=== PATIENT | female | born 1930 | race American Indian/Alaskan Native ===

== ENCOUNTER 2017-05-07 10:57 | Outpatient (CLI) | payer MEDICARE ==
--- NOTE | 2017-05-07 11:56 | Mammography Report ---
Right mammogram: Compared to 04/13/16. CAD study utilized. Findings: Predominance of adipose tissue right breast. Calcifications right breast without interval change. No mass. Normal axilla. Focal new dense asymmetry measuring 3 mm in diameter noted at the lower right axilla. Impression: Focal new density right lower axilla. Recommend spot mag and if necessary sonographic examination. BI-RADS CATEGORY: 0 = Needs additional imaging evaluation ACR BI-RADS MAMMOGRAPHIC CODES: 0 = Needs additional imaging evaluation; 1 = Negative; 2 = Benign; 3 = Probably benign; 4 = Suspicious; 5 = Malignant; 6 = Known biopsy-proven malignancy COMMENT: 1. Dense breast tissue, i.e., adenosis, fibrocystic changes, etc., may obscure an underlying neoplasm. 2. Approximately 10% of cancers are not detected with mammography. 3. A negative mammography report should not delay biopsy if a clinically suspicious mass is present.
== END 2017-05-07 10:58 | disposition home or self-care (01) ==
LOC: MAMMO 10:57
PROVIDERS: ATTEND Family Medicine
DX: Z12.31 Encounter for screening mammogram for malignant neoplasm of breast (principal); I10 Essential (primary) hypertension; Z87.891 Personal history of nicotine dependence
CPT/HCPCS: G0202-52

== ENCOUNTER 2017-11-06 13:02 | Emergency (ER) | payer MEDICARE ==
[2017-11-06 13:37] VITALS: BP 110/46
--- NOTE | 2017-11-06 16:07 | Emergency Department Report ---
ED Fall HPI - General Chief Complaint: Fall Stated Complaint: FALL Time Seen by Provider: 11/06/17 15:52 Source: patient Mode of arrival: Ambulatory - History of Present Illness Initial Comments: Patient is a 86-year-old female with a history of diabetes and a blood pressure on controlled with medications who presents to ED complaining pain status post fall this morning. Patient states she was trying to reach up on a cabinet and stood on the chair to reach to cabinet to get her medication. Patient states that the chair tripped and she fell out of the chair and hit hurts back of the head and her right elbow. Patient states she had no loss of consciousness after incident she was able to get up after the incident. Patient states this incident happened around 10 AM at home this morning. Patient states around 11: 30 she took a tramadol prior to coming to the emergency room. Patient complains of headache at the point where she hit her head. Patient also complains complains of right elbow throbbing pain and swelling. She denies fevers/chills/chest pain/shortness of breath/abdominal pain/dizziness /nausea vomiting or blurred vision. MD Complaint: fall Fall From: chair When Fall Occurred: 4-6 hours [employer] Fall Witnessed: no Place Fall Occurred: home Loss of Consciousness: none Prolonged Down Time?: no Symptoms Prior to Fall: none Location: head Location - Extremities: Right: Elbow Severity: moderate Severity scale (0 -10): 5 Quality: aching Context: tripped/slipped Associated Symptoms: headache. denies: neck pain, numbness, weakness, chest paint, shortness of breath, abdominal pain, lightheaded, vertigo, confusion - Related Data Home Medications Medication Instructions Recorded Confirmed Last Taken Carvedilol Nicu (1.67 mg/ml) 1 1000units PO QDAY 04/02/16 04/02/16 Unknown [Coreg NICU dilution] Carvedilol [Coreg] 25 mg PO BID 04/02/16 04/02/16 Unknown Cholecalciferol (Vitamin D3) 2,000 unit PO QDAY 04/02/16 04/02/16 Unknown [Vitamin D-3] Gabapentin [Gabapentin] 300 mg PO TID 04/02/16 04/02/16 Unknown Linagliptin [Tradjenta] 5 mg PO QDAY 04/02/16 04/02/16 Unknown Losartan/Hydrochlorothiazide 1 tab PO QDAY 04/02/16 04/02/16 Unknown [Losartan-Hctz 50-12.5 mg Tab] Mv-Min/Folic/Vit K/Lycop/Coq10 1 each PO QDAY 04/02/16 04/02/16 Unknown [Daily Multivitamin Capsule] NIFEdipine [Nifedipine ER] 90 mg PO QDAY 04/02/16 04/02/16 Unknown San [place]idel-3 Fatty Acids [[place]-3] 100 mg PO QDAY 04/02/16 04/02/16 Unknown Tramadol HCl [traMADol] 100 mg PO Q8HR PRN 04/02/16 04/02/16 Unknown Trazodone HCl 225 mg PO QDAY 04/02/16 04/02/16 Unknown Vitamin B Complex [Vitamin B-100 1 each PO QDAY 04/02/16 04/02/16 Unknown Complex] Previous Rx's Medication Instructions Recorded Last Taken Type Cyclobenzaprine [Flexeril] 10 mg PO BID PRN #30 tablet 11/06/[address] [Andie Jones] 75 mg PO BID #30 tablet 11/06/17 Unknown Rx Allergies Allergy/AdvReac Type Severity Reaction Status Date / Time Penicillins Allergy Swelling,Passing Verified 04/02/16 14:35 out Sulfa (Sulfonamide Allergy Swelling, Verified 04/02/16 14:35 Antibiotics) Passing out ED Review of Systems ROS: Stated complaint: FALL Other details as noted in HPI Constitutional: denies: chills, fever Eyes: denies: eye pain, eye discharge, vision change ENT: denies: ear pain, throat pain Respiratory: denies: cough, shortness of breath, wheezing Cardiovascular: denies: chest pain, palpitations Endocrine: no symptoms reported Gastrointestinal: denies: abdominal pain, nausea, diarrhea Genitourinary: denies: urgency, dysuria, discharge Musculoskeletal: denies: back pain, joint swelling, arthralgia Skin: denies: rash, lesions Neurological: denies: headache, weakness, paresthesias Psychiatric: denies: anxiety, depression Hematological/Lymphatic: denies: easy bleeding, easy bruising ED Past Medical Hx - Past Medical History Previous Medical History?: Yes Hx Hypertension: Yes (51YRS) Hx GERD: Yes - Surgical History Past Surgical History?: Yes Hx Breast Surgery: Yes (left mastectomy) Additional Surgical History: Hysterectomy - Social History Smoking Status: Former Smoker Substance Use Type: Prescribed - Medications Home Medications: Home Medications Medication Instructions Recorded Confirmed Last Taken Type Carvedilol Nicu (1.67 mg/ml) 1 1000units PO QDAY 04/02/16 04/02/16 Unknown History [Coreg NICU dilution] Carvedilol [Coreg] 25 mg PO BID 04/02/16 04/02/16 Unknown History Cholecalciferol (Vitamin D3) 2,000 unit PO QDAY 04/02/16 04/02/16 Unknown History [Vitamin D-3] Gabapentin [Gabapentin] 300 mg PO TID 04/02/16 04/02/16 Unknown History Linagliptin [Tradjenta] 5 mg PO QDAY 04/02/16 04/02/16 Unknown History Losartan/Hydrochlorothiazide 1 tab PO QDAY 04/02/16 04/02/16 Unknown History [Losartan-Hctz 50-12.5 mg Tab] Mv-Min/Folic/Vit K/Lycop/Coq10 1 each PO QDAY 04/02/16 04/02/16 Unknown History [Daily Multivitamin Capsule] NIFEdipine [Nifedipine ER] 90 mg PO QDAY 04/02/16 04/02/16 Unknown History San Fidel-3 Fatty Acids [[place]-3] 100 mg PO QDAY 04/02/16 04/02/16 Unknown History Tramadol HCl [traMADol] 100 mg PO Q8HR PRN 04/02/16 04/02/16 Unknown History Trazodone HCl 225 mg PO QDAY 04/02/16 04/02/16 Unknown History Vitamin B Complex [Vitamin B-100 1 each PO QDAY 04/02/16 04/02/16 Unknown History Complex] Cyclobenzaprine [Flexeril] 10 mg PO BID PRN #30 tablet 11/06/[address] [Voltaren Dr] 75 mg PO BID #30 tablet 11/06/17 Unknown Rx ED Physical Exam - General Limitations: Physical Limitation General appearance: alert, in no apparent distress - Head Head exam: Present: atraumatic, normocephalic - Eye Eye exam: Present: normal appearance, PERRL, EOMI Pupils: Present: normal accommodation - ENT ENT exam: Present: mucous membranes moist - Neck Neck exam: Present: normal inspection, full ROM. Absent: tenderness - Respiratory Respiratory exam: Present: normal lung sounds bilaterally. Absent: respiratory distress, wheezes - Cardiovascular Cardiovascular Exam: Present: regular rate, normal rhythm. Absent: systolic murmur, diastolic murmur, rubs, gallop - GI/Abdominal GI/Abdominal exam: Present: soft, normal bowel sounds - Extremities Exam Extremities exam: Present: normal inspection, full ROM, tenderness (at right posteriior elbow with swelling), normal capillary refill. Absent: pedal edema, joint swelling, calf tenderness - Expanded Upper Extremity Exam Right General: Present: normal inspection Shoulder Exam: Present: normal inspection, full ROM. Absent: tenderness, swelling Upper Arm exam: Present: normal inspection, full ROM. Absent: tenderness, swelling Elbow exam: Present: full ROM, tenderness, swelling (posteriorly). Absent: abrasion, laceration, ecchymosis - Expanded Lower Extremity Exam Left Hip exam: Present: normal inspection, full ROM. Absent: tenderness, swelling Upper Leg exam: Present: normal inspection Knee exam: Present: normal inspection, full ROM. Absent: tenderness, swelling Lower Leg exam: Present: normal inspection, full ROM. Absent: tenderness, swelling, abrasion Ankle exam: Present: normal inspection, full ROM. Absent: tenderness, swelling Foot/Toe exam: Present: normal inspection, full ROM. Absent: tenderness Neuro vascular tendon exam: Present: no vascular compromise Gait: Positive: observed and normal Right Hip exam: Present: normal inspection, full ROM. Absent: tenderness, swelling Upper Leg exam: Present: normal inspection, full ROM Knee exam: Present: normal inspection, full ROM. Absent: tenderness, swelling Lower Leg exam: Present: normal inspection, full ROM. Absent: tenderness, swelling Ankle exam: Present: normal inspection, full ROM. Absent: tenderness, swelling Foot/Toe exam: Present: normal inspection, full ROM. Absent: tenderness, swelling, abrasion Neuro vascular tendon exam: Present: no vascular compromise - Back Exam Back exam: Present: normal inspection - Neurological Exam Neurological exam: Present: alert, oriented X3, CN II-XII intact, normal gait ( with cane) - Psychiatric Psychiatric exam: Present: normal affect, normal mood - Skin Skin exam: Present: warm, dry, intact, normal color. Absent: rash ED Course Vital Signs 11/06/17 11/06/17 13:29 16:56 Temperature 98.4 F Pulse Rate 72 Respiratory 16 16 Rate Blood Pressure 110/46 O2 Sat by Pulse 96 Oximetry ED Medical Decision Making - Radiology Data Radiology results: report reviewed, image reviewed HISTORY: fall/headache TECHNIQUE: Standard unenhanced CT of the head at 5.0 millimeter axial increments. PRIORS: None. FINDINGS: The ventricular system is normal in size and configuration. There is mild cerebral atrophy. There is no evidence for mass lesion, mass effect, midline shift, acute intracranial hemorrhage, or acute ischemia/ infarction. No evidence for acute skull fracture is seen. There is soft tissue scalp swelling over the posterior left parietal region Visualized paranasal sinuses are clear. IMPRESSION: No acute intracranial process noted. Soft tissue scalp swelling over the left posterior parietal region Transcribed By: [facility] Dictated By: REGLA URBINA MD Electronically Authenticated By: REGLA URBINA MD Signed Date/Time: 11/06/17 5146 HISTORY: Fall. Right elbow pain with swelling. COMPARISON: No prior studies are available for comparison. FINDINGS: Fracture (s) and/or Dislocation(s): Subtle lucency through the lateral epicondyle on oblique view Alignment: Normal . Joint space(s): Small joint effusion. Soft tissues: On lateral view soft tissue prominence about the proximal forearm. Bone mineralization: Mild osteopenia. Foreign bodies: None . IMPRESSION: Osteopenia. Subtle lucency through the lateral epicondyle on oblique view, likely patient positioning but difficult to completely exclude nondisplaced fracture. Consider soft tissue contusion/hematoma about the proximal forearm. Small joint effusion. Consider repeat radiographs or even CT scan if there is continued clinical concern. Transcribed By: [facility] [place]ict[place] By: CYNDY ALVAREZ MD Electronically Authenticated By: CYNDY ALVAREZ MD Signed Date/Time: 11/06/17 6430 - Medical Decision Making 86-year-old female presents status post fall ED course: CT of the head, elbow x-rays ordered. CT scan of the head normal findings. X-ray of the elbow shows no fracture elbow contusion I discussed this findings with the patient and her daughters. I discussed with the patient to follow up with orthopedic Dr. Baca for follow-up x-ray within the week. The patient is able to extend and flex the elbow joint with no problems so therefore I suspect no fractures. Sent home on diclofenac and muscle relaxants for muscle pain Vital signs are normal patient is in no acute distress Discussed with patient follow-up with primary care physician. Discussed the patient and take medications as prescribed. Patient has no neurological deficit. Patient is alert and oriented 3 and understands all instructions given. Discussed drowsiness effect of Flexeril makes her drowsy and not to operate machinery while taking flexeril Critical care attestation.: If time is entered above; I have spent that time in minutes in the direct care of this critically ill patient, excluding procedure time. ED Disposition Clinical Impression: Myalgia, Contusion of right elbow, initial encounter Fall at home Qualifiers: Encounter type: initial encounter Qualified Code(s): W19.XXXA - Unspecified fall, initial encounter Disposition: TO HOME OR SELFCARE Is pt being admited?: No Does the pt Need Aspirin: No Condition: Stable Instructions: Fall Prevention for Older Adults (ED), Trigger Point Pain (ED), Musculoskeletal Pain (ED), Heat Pack Application (ED), Fall Prevention (ED) Additional Instructions: Make sure to follow up with the primary care physician as discussed. Take all your medications as you've been prescribed. If you have any worsening symptoms or develop new symptoms please return to ED immediately. Follow-up with orthopedic Dr. Baca as discussed. Prescriptions: Cyclobenzaprine [Flexeril] 10 mg PO BID PRN #30 tablet PRN Reason: Muscle Spasm Diclofenac [Voltaren ] 75 mg PO BID #30 tablet Referrals: THELMA PAUL MD [Primary Care Provider] - 3-5 Days PAPITO BACA MD [Staff Physician] - 3-5 Days Forms: Accompanied Note Time of Disposition: 19:05
[2017-11-06] MEDS ORDERED: TYLENOL #3 PO ONE (16:50)
--- NOTE | 2017-11-06 17:19 | Cat Scan Report ---
FINAL REPORT EXAM: CT HEAD/BRAIN WO CON HISTORY: fall/headache TECHNIQUE: Standard unenhanced CT of the head at 5.0 millimeter axial increments. PRIORS: None. FINDINGS: The ventricular system is normal in size and configuration. There is mild cerebral atrophy. There is no evidence for mass lesion, mass effect, midline shift, acute intracranial hemorrhage, or acute ischemia/ infarction. No evidence for acute skull fracture is seen. There is soft tissue scalp swelling over the posterior left parietal region Visualized paranasal sinuses are clear. IMPRESSION: No acute intracranial process noted. Soft tissue scalp swelling over the left posterior parietal region
--- NOTE | 2017-11-06 19:01 | XRay Report ---
FINAL REPORT PROCEDURE: XR ELBOW 3+V RT TECHNIQUE: RIGHT elbow radiographs, including AP, lateral, and oblique views. CPT 82563 HISTORY: Fall. Right elbow pain with swelling. COMPARISON: No prior studies are available for comparison. FINDINGS: Fracture (s) and/or Dislocation(s): Subtle lucency through the lateral epicondyle on oblique view Alignment: Normal . Joint space(s): Small joint effusion. Soft tissues: On lateral view soft tissue prominence about the proximal forearm. Bone mineralization: Mild osteopenia. Foreign bodies: None . IMPRESSION: Osteopenia. Subtle lucency through the lateral epicondyle on oblique view, likely patient positioning but difficult to completely exclude nondisplaced fracture. Consider soft tissue contusion/hematoma about the proximal forearm. Small joint effusion. Consider repeat radiographs or even CT scan if there is continued clinical concern.
== END 2017-11-06 19:16 | disposition home or self-care (01) ==
LOC: ED 13:02
DX: S50.01XA Contusion of right elbow, initial encounter (principal); R51 Headache; I10 Essential (primary) hypertension; K21.9 Gastro-esophageal reflux disease without esophagitis; Z90.710 Acquired absence of both cervix and uterus; Z87.891 Personal history of nicotine dependence; Z90.12 Acquired absence of left breast and nipple; Z88.0 Allergy status to penicillin; Z88.2 Allergy status to sulfonamides; W07.XXXA Fall from chair, initial encounter; Y93.89 Activity, other specified; Y99.8 Other external cause status; Y92.009 Unspecified place in unspecified non-institutional (private) residence as the place of occurrence of the external cause
CPT/HCPCS: 70450; 99284